=== PATIENT | male | born 1975 | race Native Hawaiian/Other Pacific Islander ===

== ENCOUNTER 2020-02-20 11:15 | Outpatient (CLI) | payer BC | END 2020-02-20 19:14 | disposition home or self-care (01) | LOC: MRI 11:15 | PROVIDERS: ATTEND Orthopaedic Surgery | DX: M54.16 Radiculopathy, lumbar region (principal); M54.5 Low back pain ==

== ENCOUNTER 2020-08-05 13:26 | Outpatient (CLI) | payer BC | END 2020-08-05 23:42 | disposition home or self-care (01) | LOC: MRI 13:26 | PROVIDERS: ATTEND Neurological Surgery | DX: M47.26 Other spondylosis with radiculopathy, lumbar region (principal) ==

== ENCOUNTER 2020-08-21 10:48 | Outpatient (CLI) | payer BC ==
[2020-08-21 11:18] LABS: PLATELET COUNT 312 K/uL (142-355)
[2020-08-21 11:22] LABS: POTASSIUM 4.2 mmol/L (3.6-5.2)
== END 2020-08-21 20:20 | disposition home or self-care (01) ==
LOC: LABW 10:48
PROVIDERS: ATTEND Neurological Surgery
DX: Z01.818 Encounter for other preprocedural examination (principal); Z79.01 Long term (current) use of anticoagulants; M47.26 Other spondylosis with radiculopathy, lumbar region; Z72.0 Tobacco use; Z20.828 Contact with and (suspected) exposure to other viral communicable diseases
CPT/HCPCS: 36415; 80048; 85027; 87635; 93005; G2023; U0003